=== PATIENT | female | born 1975 | race Caucasian/White ===

== ENCOUNTER 2016-08-20 00:58 | Observation (INO) | payer OTHER ==
[~2016-08-20] VITALS: Ht 160 cm; Wt 83.0 kg
[~2016-08-20 00:58] MED LIST: ADVIL LIQUI-GE200 MG PO; AUGMENTIN875 MG PO; BACTRIM,SEPT1 TABLET PO; CIPROFLOXACIN500 M1 PO; INDOCIN25 MG PO; KEFLEX500 MG PO; LAMICTAL ODT50 MG PO; LAMICTAL25 MG PO; LIDOCAINE20 MG/1 M5 PO; LOFIBRA,TRIGLI160 MG PO; MACROBID100 MG PO; PREMARIN0.3 MG PO; PYRIDIUM200 MG PO; REMERON30 MG PO; TRICOR145 MG PO; XANAX0.5 MG PO; ZOLOFT100 MG PO; ZYPREXA10 MG PO
[2016-08-20 01:28] LABS: HEMATOCRIT 37.5 % (36.0-46.0); MCH 24.7 PG (29.0-34.0); MCHC 31.7 G/DL (30.0-36.0); MCV 77.8 FL (83-99); MEAN PLAT.VOLUME 9.8 uM^3 (9.5-12.4); PLATELET COUNT 394 K/uL (156-360); RBC DIS.WIDTH-CV 14.7 % (11.8-14.6); RBC DIS.WIDTH-SD 40.3 % (39-53); RED BLOOD COUNT 4.82 M/uL (3.80-5.20); WHITE BLOOD COUNT 8.1 K/uL (4.1-10.2)
[2016-08-20 01:37] LABS: CHLORIDE 110 mEq/L (99-109); SODIUM 140 mEq/L (136-147)
[2016-08-20 01:41] LABS: ANION GAP 9 MEQ/L (2-14)
[2016-08-20 01:42] LABS: GLUCOSE 108 mg/dL (70-99); POTASSIUM 3.5 mEq/L (3.7-5.4)
[2016-08-20 01:43] LABS: GFR ESTIMATE (CALCULATED) 58 mL/min/
[2016-08-20 01:44] LABS: UREA NITROGEN (BUN) 13 mg/dL (9-23)
[2016-08-20 01:50] LABS: TROP-I INTERPRETATION NEGATIVE; TROPONIN-I < 0.01 ng/mL (0.0-0.30)
[2016-08-20 02:14] LABS: D-DIMER ELISA 0.18 mg/L FEU (< 0.57)
[2016-08-20 02:18] LABS: QUANTITATIVE HCG < 4.0 MIU/ML
[2016-08-20] MEDS ORDERED: ALPRAZOLAM0.5 MG PO (02:54)
[2016-08-20] MEDS ORDERED: METOPROLOL SUCC25 MG PO (02:55)
[2016-08-20] MEDS ORDERED: OLANZAPINE5 MG PO (02:55)
[2016-08-20 04:05] VITALS: BP 146/81
[2016-08-20 04:10] LABS: HDL CHOLESTEROL 36 MG/DL (Desirable>=50); LDL CHOLESTEROL 142 mg/dL (Desirable<100); NON-HDL CHOLESTEROL 182 mg/dL (Desirable<160); SAMPLE HEMOLYSIS CHECK 0; SAMPLE ICTERIC CHECK 0; SAMPLE LIPEMIA CHECK 0; TOTAL CHOLESTEROL 218 mg/dL (Desirable<200); TRIGLYCERIDES 201 MG/DL (Normal: <150)
[2016-08-20 07:09] LABS: Estimated Average Glucose 105 mg/dL (70-123); HEMOGLOBIN A1c (GLYCOHEMOGLOB) 5.3 % HGB (Below 5.7)
[2016-08-20 07:17] LABS: AMPHETAMINES QUANT VALUE 0 NG/ML; BARBITUATES QUANT VALUE 0 NG/ML; BENZODIAZEPINES, URINE SCREEN POSITIVE (200 ng/mL); MARIJUANA QUANT VALUE 0 NG/ML; OPIATES QUANTITATIVE VALUE 0 NG/ML; PHENCYCLIDINE QUANT VALUE 0 NG/ML
[2016-08-20 07:24] LABS: ADD MIUA? NO; BILIRUBIN NEGATIVE; BLOOD NEGATIVE; COLOR STRAW ((YELLOW)); GLUCOSE (STRIP) NEGATIVE; KETONES NEGATIVE; LEUKOCYTES NEGATIVE; NITRITE NEGATIVE; PROTEIN (STRIP) NEGATIVE; SPECIFIC GRAVITY 1.009 (1.000-1.030); UCUL ADDED? NO; UROBILINOGEN 0.2 MG/DL (0.2-1.0)
[2016-08-20 08:15] VITALS: BP 119/78
[2016-08-20 09:04] LABS: TROP-I INTERPRETATION NEGATIVE; TROPONIN-I < 0.01 ng/mL (0.0-0.30)
[2016-08-20 09:13] VITALS: BP 119/78
[2016-08-20] MEDS ORDERED: B-12500 MC1 SL (09:50)
[2016-08-20] MEDS ORDERED: HAIR, SKIN & N1 EAC1 PO (09:51)
[2016-08-20 12:27] VITALS: BP 126/80
[2016-08-20 14:58] LABS: TROP-I INTERPRETATION NEGATIVE; TROPONIN-I < 0.01 ng/mL (0.0-0.30)
[2016-08-20 15:45] VITALS: BP 128/80
[2016-08-20 16:20] VITALS: BP 171/67
== END 2016-08-20 16:26 | disposition home or self-care (01) ==
LOC: EME 00:58 → EDOF 02:42 → 5WEST 03:49
PROVIDERS: Emergency Medicine; Physician Assistant Medical; Student in an Organized Health Care Education/Training Program
DX: R07.89 Other chest pain (principal); F41.9 Anxiety disorder, unspecified; I10 Essential (primary) hypertension; F31.9 Bipolar disorder, unspecified; G43.909 Migraine, unspecified, not intractable, without status migrainosus; E78.5 Hyperlipidemia, unspecified; E66.9 Obesity, unspecified; Z68.31 Body mass index [BMI] 31.0-31.9, adult; Z87.891 Personal history of nicotine dependence
CPT/HCPCS: 71020; 80048; 80061; 80306 90; 81003; 83036; 84484; 84702; 85027; 85379; 93005; 99281; 99285; G0378; J1650

== ENCOUNTER 2016-10-30 15:55 | Emergency (ER) | payer OTHER ==
[~2016-10-30] VITALS: Ht 160 cm; Wt 83.0 kg
[~2016-10-30 15:55] MED LIST changes: +ALPRAZOLAM0.5 MG PO; +B-12500 MC1 SL; +HAIR, SKIN & N1 EAC1 PO; +METOPROLOL SUCC25 MG PO; +OLANZAPINE5 MG PO
[2016-10-30 17:39] LABS: HEMATOCRIT 42.7 % (36.0-46.0); MCH 25.3 PG (29.0-34.0); MCHC 31.9 G/DL (30.0-36.0); MCV 79.4 FL (83-99); MEAN PLAT.VOLUME 10.3 uM^3 (9.5-12.4); PLATELET COUNT 384 K/uL (156-360); RBC DIS.WIDTH-CV 15.4 % (11.8-14.6); RBC DIS.WIDTH-SD 44.2 % (39-53); RED BLOOD COUNT 5.38 M/uL (3.80-5.20); WHITE BLOOD COUNT 6.5 K/uL (4.1-10.2)
[2016-10-30 17:52] LABS: CHLORIDE 109 mEq/L (99-109); POTASSIUM 4.2 mEq/L (3.7-5.4); SODIUM 140 mEq/L (136-147)
[2016-10-30 17:55] LABS: GLUCOSE 83 mg/dL (70-99)
[2016-10-30 17:56] LABS: ANION GAP 9 MEQ/L (2-14)
[2016-10-30 17:57] LABS: TOTAL BILIRUBIN 0.3 mg/dL (0.0-1.0)
[2016-10-30 17:58] LABS: ALKALINE PHOSPHATASE 70 IU/L (3-129); GFR ESTIMATE (CALCULATED) > 59 mL/min/
[2016-10-30 18:00] LABS: UREA NITROGEN (BUN) 7 mg/dL (9-23)
[2016-10-30 18:02] LABS: LIPASE 45 U/L (1.0-51.0)
[2016-10-30 18:08] LABS: QUANTITATIVE HCG < 4.0 MIU/ML
[2016-10-30 18:15] LABS: ADD MIUA? YES; BILIRUBIN NEGATIVE; BLOOD MODERATE; COLOR STRAW ((YELLOW)); GLUCOSE (STRIP) NEGATIVE; KETONES NEGATIVE; LEUKOCYTES MODERATE; NITRITE NEGATIVE; PROTEIN (STRIP) NEGATIVE; SPECIFIC GRAVITY 1.004 (1.000-1.030); UROBILINOGEN 0.2 MG/DL (0.2-1.0)
[2016-10-30 18:30] LABS: BACTERIA RARE /HPF; EPITHELIAL CELLS 1+ /HPF; MUCUS TRACE /LPF; RED BLOOD CELLS 0-5 /HPF (0-5); UCUL ADDED? NO
[2016-10-30] MEDS ORDERED: KEFLEX500 MG PO (19:32)
[2016-10-30 19:48] VITALS: BP 177/95
== END 2016-10-30 19:49 | disposition home or self-care (01) ==
LOC: EME 15:55
PROVIDERS: Physician Assistant Medical
DX: N39.0 Urinary tract infection, site not specified (principal); R10.9 Unspecified abdominal pain; E78.5 Hyperlipidemia, unspecified; I10 Essential (primary) hypertension; Z88.6 Allergy status to analgesic agent; Z87.891 Personal history of nicotine dependence
CPT/HCPCS: 74176; 80053; 81003; 83690; 84702; 85027; 99281; 99284; J1885; J7030

== ENCOUNTER 2017-02-24 11:02 | Emergency (ER) | payer OTHER ==
[~2017-02-24] VITALS: Ht 160 cm; Wt 80.3 kg
[2017-02-24 11:46] LABS: HEMATOCRIT 41.4 % (36.0-46.0); MCH 26.1 PG (29.0-34.0); MCHC 31.4 G/DL (30.0-36.0); MEAN PLAT.VOLUME 10.7 uM^3 (9.5-12.4); PLATELET COUNT 336 K/uL (156-360); RBC DIS.WIDTH-CV 14.3 % (11.8-14.6); RBC DIS.WIDTH-SD 43.4 % (39-53); RED BLOOD COUNT 4.99 M/uL (3.80-5.20); WHITE BLOOD COUNT 7.4 K/uL (4.1-10.2)
[2017-02-24 11:56] LABS: CHLORIDE 109 mEq/L (99-109); POTASSIUM 3.9 mEq/L (3.7-5.4); SODIUM 140 mEq/L (136-147)
[2017-02-24 11:58] LABS: GLUCOSE 99 mg/dL (70-99)
[2017-02-24 12:00] LABS: ANION GAP 12 MEQ/L (2-14)
[2017-02-24 12:02] LABS: GFR ESTIMATE (CALCULATED) > 59 mL/min/
[2017-02-24 12:03] LABS: UREA NITROGEN (BUN) 11 mg/dL (9-23)
[2017-02-24 13:27] LABS: ADD MIUA? YES; BILIRUBIN NEGATIVE; BLOOD MODERATE; COLOR YELLOW ((YELLOW)); GLUCOSE (STRIP) NEGATIVE; KETONES NEGATIVE; LEUKOCYTES LARGE; NITRITE NEGATIVE; PROTEIN (STRIP) NEGATIVE; SPECIFIC GRAVITY 1.009 (1.000-1.030); UROBILINOGEN 0.2 MG/DL (0.2-1.0)
[2017-02-24 13:33] LABS: BACTERIA RARE /HPF; EPITHELIAL CELLS 2+ /HPF; MUCUS TRACE /LPF; UCUL ADDED? YES; WHITE BLOOD CELLS 20-30 /HPF (0-5)
[2017-02-24 14:07] LABS: QUANTITATIVE HCG < 4.0 MIU/ML
[2017-02-24] MEDS ORDERED: KEFLEX500 MG PO ×2 (15:01→15:44)
[2017-02-24 16:17] VITALS: BP 133/89
== END 2017-02-24 16:18 | disposition home or self-care (01) ==
LOC: EME 11:02
DX: N12 Tubulo-interstitial nephritis, not specified as acute or chronic (principal); R31.9 Hematuria, unspecified; I10 Essential (primary) hypertension; E78.5 Hyperlipidemia, unspecified; F17.200 Nicotine dependence, unspecified, uncomplicated
CPT/HCPCS: 74176; 80048; 81003; 84702; 85027; 87086; 99281; 99283

== ENCOUNTER 2017-03-22 11:24 | Emergency (ER) | payer OTHER ==
[~2017-03-22] VITALS: Ht 160 cm; Wt 78.9 kg
[2017-03-22] MEDS ORDERED: NAPROSYN500 MG PO (12:24)
[2017-03-22 12:55] VITALS: BP 120/70
== END 2017-03-22 12:56 | disposition home or self-care (01) ==
LOC: EME 11:24
DX: S93.402A Sprain of unspecified ligament of left ankle, initial encounter (principal); X50.9XXA Other and unspecified overexertion or strenuous movements or postures, initial encounter; M21.612 Bunion of left foot; I10 Essential (primary) hypertension; F41.9 Anxiety disorder, unspecified; F17.200 Nicotine dependence, unspecified, uncomplicated
CPT/HCPCS: 73610; 73630; 99281; 99284

== ENCOUNTER 2017-05-12 10:08 | Emergency (ER) | payer OTHER ==
[~2017-05-12] VITALS: Ht 160 cm; Wt 75.9 kg
[~2017-05-12 10:08] MED LIST changes: +NAPROSYN500 MG PO
[2017-05-12 10:17] VITALS: BP 183/95
[2017-05-12] MEDS ORDERED: SUDAFED 12-HOU120 MG PO (11:45)
== END 2017-05-12 11:57 | disposition home or self-care (01) ==
LOC: EME 10:08
DX: J06.9 Acute upper respiratory infection, unspecified (principal); H92.01 Otalgia, right ear; F17.200 Nicotine dependence, unspecified, uncomplicated
CPT/HCPCS: 99281; 99283

== ENCOUNTER 2017-09-04 15:06 | Emergency (ER) | payer OTHER ==
[~2017-09-04] VITALS: Ht 177.8 cm; Wt 73.9 kg
[~2017-09-04 15:06] MED LIST changes: +SUDAFED 12-HOU120 MG PO
[2017-09-04] MEDS ORDERED: INDOCIN50 MG PO (19:02)
[2017-09-04] MEDS ORDERED: FLEXERIL5 MG PO (19:02)
[2017-09-04] MEDS ORDERED: ULTRACET1 TABLET PO (19:03)
[2017-09-04 19:34] VITALS: BP 121/70
== END 2017-09-04 19:37 | disposition home or self-care (01) ==
LOC: EME 15:06
DX: S39.012A Strain of muscle, fascia and tendon of lower back, initial encounter (principal); S16.1XXA Strain of muscle, fascia and tendon at neck level, initial encounter; M54.31 Sciatica, right side; M54.12 Radiculopathy, cervical region; X50.3XXA Overexertion from repetitive movements, initial encounter; Y93.H1 Activity, digging, shoveling and raking; I10 Essential (primary) hypertension; E78.5 Hyperlipidemia, unspecified; F17.200 Nicotine dependence, unspecified, uncomplicated; Z88.5 Allergy status to narcotic agent; Z88.8 Allergy status to other drugs, medicaments and biological substances
CPT/HCPCS: 99281; 99284

== ENCOUNTER 2017-10-03 20:13 | Emergency (ER) | payer OTHER ==
[~2017-10-03] VITALS: Ht 160 cm; Wt 73.9 kg
[~2017-10-03 20:13] MED LIST changes: +FLEXERIL5 MG PO; +INDOCIN50 MG PO; +ULTRACET1 TABLET PO
[2017-10-03] MEDS ORDERED: AUGMENTIN875 MG PO (22:46)
[2017-10-04 01:17] VITALS: BP 121/77
== END 2017-10-04 01:17 | disposition home or self-care (01) ==
LOC: EME 20:13
DX: S81.851A Open bite, right lower leg, initial encounter (principal); W55.01XA Bitten by cat, initial encounter; Z23 Encounter for immunization; Z20.3 Contact with and (suspected) exposure to rabies; Z29.14 Encounter for prophylactic rabies immune globulin; F17.200 Nicotine dependence, unspecified, uncomplicated; Z88.5 Allergy status to narcotic agent; Z88.8 Allergy status to other drugs, medicaments and biological substances
CPT/HCPCS: 99281; 99283

== ENCOUNTER 2017-10-11 12:13 | Emergency (ER) | payer OTHER ==
[~2017-10-11] VITALS: Ht 160 cm; Wt 72.4 kg
[2017-10-11 14:24] VITALS: BP 182/91
== END 2017-10-11 14:25 | disposition home or self-care (01) ==
LOC: EME 12:13
PROC: 3E0234Z Introduction of Serum, Toxoid and Vaccine into Muscle, Percutaneous Approach (ICD-10-PCS; principal; 2017-10-11)
DX: Z20.3 Contact with and (suspected) exposure to rabies (principal); S81.851D Open bite, right lower leg, subsequent encounter; Z23 Encounter for immunization; Z88.5 Allergy status to narcotic agent; Z88.8 Allergy status to other drugs, medicaments and biological substances; F17.200 Nicotine dependence, unspecified, uncomplicated
CPT/HCPCS: 99281; 99283

== ENCOUNTER 2017-10-18 08:20 | Emergency (ER) | payer OTHER ==
[~2017-10-18] VITALS: Ht 160 cm; Wt 72.4 kg
[2017-10-18 09:52] VITALS: BP 122/75
== END 2017-10-18 09:53 | disposition home or self-care (01) ==
LOC: EME 08:20
PROC: 3E0234Z Introduction of Serum, Toxoid and Vaccine into Muscle, Percutaneous Approach (ICD-10-PCS; principal; 2017-10-18)
DX: Z20.3 Contact with and (suspected) exposure to rabies (principal); Z23 Encounter for immunization; I10 Essential (primary) hypertension; F41.9 Anxiety disorder, unspecified; F17.200 Nicotine dependence, unspecified, uncomplicated; Z88.5 Allergy status to narcotic agent; Z88.8 Allergy status to other drugs, medicaments and biological substances
CPT/HCPCS: 99281; 99283

== ENCOUNTER 2017-11-29 17:41 | Emergency (ER) | payer OTHER ==
[~2017-11-29] VITALS: Ht 160 cm; Wt 70.6 kg
[2017-11-29] MEDS ORDERED: PEN-VEE K,VEET500 MG PO (18:46)
[2017-11-29] MEDS ORDERED: ULTRAM50 MG PO (19:05)
[2017-11-29 19:32] VITALS: BP 148/74
== END 2017-11-29 19:32 | disposition home or self-care (01) ==
LOC: RME 17:41 → EME 17:41 → RME 19:32
DX: K04.7 Periapical abscess without sinus (principal); Z88.5 Allergy status to narcotic agent; Z88.8 Allergy status to other drugs, medicaments and biological substances
CPT/HCPCS: 99281; 99283